=== PATIENT | male | born 1975 | race Caucasian/White ===

== ENCOUNTER 2019-11-09 08:25 | Emergency (ER) | payer OTHER ==
[~2019-11-09] VITALS: Ht 180.3 cm; Wt 90.7 kg
[2019-11-09] MEDS ORDERED: TIZANIDINE HCL4 M1 PO (08:38)
[2019-11-09] MEDS ORDERED: METHOCARBAMOL500 M2 PO (08:38)
[2019-11-09] MEDS ORDERED: CYCLOBENZAPRINE5 MG PO (09:59)
[2019-11-09] MEDS ORDERED: NORCO 5-325 TA1 EAC1 PO (09:59)
[2019-11-09] MEDS ORDERED: NAPROSYN500 MG PO (09:59)
[2019-11-09 10:12] VITALS: BP 150/106
== END 2019-11-09 10:14 | disposition home or self-care (01) ==
LOC: M.ERS 08:25
DX: M19.012 Primary osteoarthritis, left shoulder (principal)